=== PATIENT | female | born 1960 ===

== ENCOUNTER 2017-09-08 10:33 | Emergency (ER) | payer OTHER ==
[2017-09-08] MEDS ORDERED: Sodium Chloride 0.9% 1,000 ML IV ONE (11:35)
[2017-09-08] MEDS ORDERED: Tamsulosin 0.4 MG Cap.ER PO ONE (11:35)
[2017-09-08] MEDS ORDERED: Ondansetron 4 MG/2 ML SDV IVPUSH ONE (11:35)
[2017-09-08] MEDS ORDERED: Sodium Chloride 0.9% 10 ML Syringe FLUSH PRN (11:35)
[2017-09-08] MEDS ORDERED: HYDROmorphone 0.5 MG/0.5 ML Syringe IVPUSH ONE (11:36)
--- NOTE | 2017-09-08 11:40 | EDM.PDOC ---
ED HPI GENERAL MEDICAL PROBLEM - General Chief Complaint: Flank Pain Stated Complaint: LEFT SIDE FLANK PAIN Time Seen by Provider: 09/08/17 11:27 Source of Information: Reports: Patient History Limitations: Reports: No Limitations - History of Present Illness INITIAL COMMENTS - FREE TEXT/NARRATIVE: Patient is a 57-year-old female presents ED complaining of sudden onset of left flank pain that radiates into her lower abdomen. This came on approximately 945 this morning. Pain is described as intense, sharp, that wax and wane with intensity. Pain is constant currently rated a 6 out of 10. At its peak patient describes it as worse than childbirth. Patient does feel like she needs to urinate with only a trickle of urine present. There is no pain with urination. She did become mildly nauseated with no episodes of emesis. Denies any chest pain, short of breath, fever, diarrhea, history kidney stones, or any additional complaints. Patient has a past medical history of hypertension, asthma, hypothyroidism Patient is currently taking enalapril, amlodipine, levothyroxine, and Ventolin inhaler Surgical history noncontributory Patient does not smoke utilize alcohol on occasionally denies recreational drug use. Left Flank Pain Score (Numeric/FACES): 10 - Related Data Allergies Allergy/AdvReac Type Severity Reaction Status Date / Time clindamycin Allergy Hives Verified 09/08/17 11:06 Sulfa (Sulfonamide Allergy Rash Verified 09/08/17 11:06 Antibiotics) tetracycline Allergy Hives Verified 09/08/17 11:06 Home Meds: Home Meds Acetaminophen/HYDROcodone [Clever 325-5 MG] 1 tab PO Q6H PRN #12 tablet 09/08/17 [Rx] Enalapril [Vasotec] 10 mg PO DAILY 09/08/17 [History] Levothyroxine [Synthroid] 88 mcg PO DAILY 09/08/17 [History] Ondansetron [Zofran ODT] 4 mg PO Q6H PRN #12 tab.dis 09/08/17 [Rx] Tamsulosin [Flomax] 0.4 mg PO PCBREAKFAST #7 cap.er 09/08/17 [Rx] amLODIPine [Norvasc] 10 mg PO DAILY 09/08/17 [History] Past Medical History Cardiovascular History: Reports: Hypertension Respiratory History: Reports: Asthma - Past Surgical History HEENT Surgical History: Reports: Tonsillectomy Social & Family History - Tobacco Use Smoking Status *Q: Never Smoker - Caffeine Use Caffeine Use: Reports: Soda - Recreational Drug Use Recreational Drug Use: No ED ROS GENERAL - Review of Systems Review Of Systems: ROS reveals no pertinent complaints other than HPI. ED EXAM, GI/ABD - Physical Exam Exam: See Below Exam Limited By: No Limitations General Appearance: Alert, WD/WN, No Apparent Distress Ears: Hearing Grossly Normal Nose: Normal Inspection Throat/Mouth: Normal Voice, No Airway Compromise Neck: Normal Inspection, Supple Respiratory/Chest: No Respiratory Distress, Lungs Clear, Normal Breath Sounds, No Accessory Muscle Use, Chest Non-Tender Cardiovascular: Normal Peripheral Pulses, Regular Rate, Rhythm, No Murmur GI/Abdominal Exam: Normal Bowel Sounds, Soft, No Organomegaly, No Distention, Tender (left cva/flank tenderness with palpation. ) Back Exam: Normal Inspection, Full Range of Motion Extremities: Normal Inspection, Non-Tender, No Pedal Edema, Normal Capillary Refill Neurological: Alert, Oriented, CN II-XII Intact, Normal Cognition, No Motor/ Sensory Deficits Psychiatric: Normal Affect, Normal Mood Skin Exam: Warm, Dry, Intact, Normal Color Course - Vital Signs Last Recorded V/S: Last Vital Signs Temp 97.5 F 09/08/17 11:10 Pulse 83 09/08/17 11:10 Resp 20 09/08/17 11:10 BP 147/98 H 09/08/17 11:10 Pulse Ox 99 09/08/17 11:10 - Orders/Labs/Meds Orders: Active Orders 24 hr Category Date Time Status Peripheral IV Care [RC] . DIRECTED Care 09/08/17 11:36 Active UA W/MICROSCOPIC [URIN] Stat Lab 09/08/17 13:13 Received Sodium Chloride 0.9% [Normal Saline] 1,000 ml Med 09/08/17 11:35 Active IV ONETIME Sodium Chloride 0.9% [Saline Flush] Med 09/08/17 11:35 Active 10 ml FLUSH ASDIRECTED PRN Peripheral IV Insertion Adult [OM.PC] Stat Oth 09/08/17 11:35 Ordered Medication Orders Sodium Chloride (Normal Saline) 1,000 mls @ 250 mls/hr IV ONETIME ONE Stop: 09/08/17 15:34 Last Admin: 09/08/17 13:35 Dose: 250 mls/hr Sodium Chloride (Saline Flush) 10 ml FLUSH ASDIRECTED PRN PRN Reason: Keep Vein Open Last Admin: 09/08/17 13:05 Dose: 10 ml Labs: Laboratory Tests 09/08/17 09/08/17 Range/Units 13:05 13:05 WBC 10.10 H (3.98-10.04) K/mm3 RBC 5.27 H (3.98-5.22) M/mm3 Hgb 15.5 (11.2-15.7) gm/L Hct 46.1 H (34.1-44.9) % MCV 87.5 (79.4-94.8) fl MCH 29.4 (25.6-32.2) pg MCHC 33.6 (32.2-35.5) g/dl RDW Std Deviation 41.6 (36.4-46.3) fL Plt Count 239 (182-369) K/mm3 MPV 9.4 (9.4-12.3) fl Neut % (Auto) 83.5 H (34.0-71.1) % Lymph % (Auto) 11.2 L (19.3-51.7) % [place] % (Auto) 4.8 (4.7-12.5) % Eos % (Auto) 0.2 L (0.7-5.8) Baso % (Auto) 0.2 (0.1-1.2) % Neut # (Auto) 8.44 H (1.56-6.13) K/mm3 Lymph # (Auto) 1.13 L (1.18-3.74) K/mm3 [place] # (Auto) 0.48 H (0.24-0.36) K/mm3 Eos # (Auto) 0.02 L (0.04-0.36) K/mm3 Baso # (Auto) 0.02 (0.01-0.08) K/mm3 Sodium 142 (136-145) mEq/L Potassium 4.1 (3.5-5.1) mEq/L Chloride 107 (98-107) mEq/L Carbon Dioxide 25 (21-32) mEq/L Anion Gap 14.1 (5-15) BUN 17 (7-18) mg/dL Creatinine 1.0 (0.55-1.02) mg/dL Est Cr Clr Drug Dosing 55.18 mL/min Estimated GFR (MDRD) 57 (>60) mL/min BUN/Creatinine Ratio 17.0 (14-18) Glucose 107 H (74-106) mg/dL Calcium 9.7 (8.5-10.1) mg/dL Total Bilirubin 0.4 (0.2-1.0) mg/dL AST 35 (15-37) U/L ALT 51 (14-59) U/L Alkaline Phosphatase 130 H (46-116) U/L C-Reactive Protein < 0.2 (<1.0) mg/dL Total Protein 7.7 (6.4-8.2) g/dl Albumin 3.8 (3.4-5.0) g/dl Globulin 3.9 gm/dL Albumin/Globulin Ratio 1.0 (1-2) Meds: Medications Generic Name Dose Route Start Last Admin Trade Name Freq PRN Reason Stop Dose Admin Sodium Chloride 1,000 mls @ 250 mls/hr 09/08/17 11:35 09/08/17 13:35 Normal Saline IV 09/08/17 15:34 250 mls/hr ONETIME ONE Administration Sodium Chloride 10 ml 09/08/17 11:35 09/08/17 13:05 Saline Flush FLUSH 10 ml ASDIRECTED PRN Administration Keep Vein Open Discontinued Medications Generic Name Dose Route Start Last Admin Trade Name Freq PRN Reason Stop Dose Admin Hydromorphone HCl 0.5 mg 09/08/17 11:36 09/08/17 13:34 Dilaudid IVPUSH 09/08/17 11:37 0.5 mg ONETIME ONE Administration Ondansetron HCl 4 mg 09/08/17 11:35 09/08/17 13:30 Zofran IVPUSH 09/08/17 11:36 4 mg ONETIME ONE Administration Tamsulosin HCl 0.4 mg 09/08/17 11:35 09/08/17 13:39 Flomax PO 09/08/17 11:36 0.4 mg ONETIME ONE Administration - Re-Assessments/Exams Free Text/Narrative Re-Assessment/Exam: IV established with normal saline 250 mls per hour, Flomax or 0.4 mg by mouth, Dilaudid 0.5 mg IVP, Zofran 4 mg IVP, and Toradol 30 mg IVP. Initial labs and studies include CBC, chem 14, CRP, UA, and CT of the abdomen and pelvis with no contrast renal stone protocol. 09/08/17 13:23 CT of the abdomen and pelvis impression: Obstructing stone within the distal left ureter located approximate 5 cm from the UVJ measuring 4.5 mm. Fatty infiltration with the liver and other incidental findings. Labs are pending. Labs reviewed: White blood cell count 10.10, hemoglobin 15.5, neutrophil percentage 83.5, neutrophil number is a 0.44, sodium 142, potassium 4.1, AG 14.1 , creatinine 1.0, glucose 107, CRP less than 0.2. UA is pending. 1345 reassessment, patient states pain is under control with the above therapies. Once UA is back with no concerning findings will discharge patient home with instructions as documented. Departure - Departure Time of Disposition: 13:55 Disposition: Home, Self-Care 01 Condition: Good Clinical Impression: Kidney stones - Discharge Information Prescriptions: Acetaminophen/HYDROcodone [Clever 325-5 MG] 1 tab PO Q6H PRN #12 tablet PRN Reason: Pain (Severe 7-10) Ondansetron [Zofran ODT] 4 mg PO Q6H PRN #12 tab.dis PRN Reason: Nausea/Vomiting Tamsulosin [Flomax] 0.4 mg PO PCBREAKFAST #7 cap.er Instructions: Kidney Stones, [id number], Flank Pain, Noro-ol-Gmal, Pain Medicine Instructions, [id number] Referrals: Fidelina Smith, ELECTRICAL DISCHARGE MACHINE OPERATOR [Primary Care Provider] - Forms: ED Department Discharge, ED Return to Work/School Form Additional Instructions: As discussed you have a kidney stone that should pass on its own accord. He still measures 4.5 mm in diameter close to the entry of the ureter to the bladder. Treatment at this point is pain therapy with Clever one tab every 6 hours as needed for discomfort. Do not drive this evening nor while taking this medication. For nausea take Zofran 4 mg every 6 hours as needed. Flomax one tab every morning until stone passes. If stone has not passed within the next 3-5 days please follow up with a urologist for further evaluation. Call and make an appointment. Return to ED if you develop any new or worsening symptoms as discussed. Push the fluids. Can also utilize ibuprofen 6 mg every 6 hours with food and plenty of water for pain in addition to the Clever. - My Orders Last 24 Hours: My Active Orders 09/08/17 11:35 Sodium Chloride 0.9% [Normal Saline] 1,000 ml IV ONETIME Sodium Chloride 0.9% [Saline Flush] 10 ml FLUSH ASDIRECTED PRN Peripheral IV Insertion Adult [OM.PC] Stat 09/08/17 11:36 Peripheral IV Care [RC] . DIRECTED 09/08/17 13:13 UA W/MICROSCOPIC [URIN] Stat - Assessment/Plan Last 24 Hours: My Active Orders 09/08/17 11:35 Sodium Chloride 0.9% [Normal Saline] 1,000 ml IV ONETIME Sodium Chloride 0.9% [Saline Flush] 10 ml FLUSH ASDIRECTED PRN Peripheral IV Insertion Adult [OM.PC] Stat 09/08/17 11:36 Peripheral IV Care [RC] . DIRECTED 09/08/17 13:13 UA W/MICROSCOPIC [URIN] Stat
--- NOTE | 2017-09-08 13:00 | CT ---
Addendum: There is a side discrepancy between the body and impression regarding right and left side of an obstructing stone. The obstructing stone is on the left side with finding in the body of the report stating right side which is incorrect. The impression is correct. --- Addendum1 above dictated on [09/09/2017 13:50] by [Loli Ramirez, Kuldip Burnette] --- --- Addendum1 above signed on [09/09/2017 13:52] by [Loli Ramirez Hilton J.] --- --- Original report below dictated on [09/08/2017 12:56] by [Loli Ramirez Hilton J.] --- --- Original report below signed on [09/08/2017 12:56] by [Loli Ramirez, Kuldip Burnette] --- CT abdomen and pelvis Technique: Multiple axial sections were obtained from above the kidneys inferiorly through the pubic symphysis. Intravenous and oral contrast not utilized. Study has been performed as a ureteral stone protocol. Comparison: No previous abdominal imaging. Findings: Right ureter is mildly prominent. This finding is due to an obstructing stone located within the pelvis. Stone measures approximately 4.5 mm. Stone occurs about 5 cm from the UVJ. No other abnormal calcifications are seen along the course of the ureters. No abnormal calcifications are seen within the kidneys. Fatty infiltration is seen within the liver. Spleen size is normal. Adrenal glands show no nodule. Pancreas appears within normal limits. Gallbladder shows no calcified gallstones. Aorta shows no aneurysmal dilatation. No retroperitoneal adenopathy is seen. Appendix is seen which is normal. No pelvic mass or adenopathy is seen. Bone window settings were reviewed which shows minimal degenerative change within the spine. Impression: 1. Obstructing stone within the distal left ureter located approximately 5 cm from the UVJ measuring 4.5 mm. 2. Fatty infiltration within the liver and other incidental findings. Diagnostic code #3 --- Addendum1 signed ---
== END 2017-09-08 14:15 | disposition home or self-care (01) ==
LOC: JD.ED 10:33
DX: N20.2 Calculus of kidney with calculus of ureter (principal); I10 Essential (primary) hypertension; Z88.1 Allergy status to other antibiotic agents; Z88.2 Allergy status to sulfonamides; Z79.899 Other long term (current) drug therapy
CPT/HCPCS: 36415; 74176; 80053; 81001; 85025; 86140; 96361; 96374; 96375; 99284; A9270; J1170; J2405; J7040; J7050

== ENCOUNTER 2017-09-14 13:15 | Emergency (ER) | payer OTHER ==
--- NOTE | 2017-09-14 13:42 | EDM.PDOC ---
ED HPI GENERAL MEDICAL PROBLEM - General Chief Complaint: Head Injury Stated Complaint: HEAD INJURY Time Seen by Provider: 09/14/17 13:25 Source of Information: Reports: Patient History Limitations: Reports: No Limitations - History of Present Illness INITIAL COMMENTS - FREE TEXT/NARRATIVE: 57-year-old female presents for evaluation and treatment of injuries sustained from a fall. Reportedly around 12:30 the patient was loading a fridge onto a trailer. She fell backwards and tripped over the side of the trailer landing backwards and struck her head on concrete. She denies any syncope. She is currently complaining of a headache, photophobia, lightheadedness, dizziness, nausea and neck pain. She denies any vision changes, back pain, chest pain, shortness of breath, abdominal pain, epistaxis, loose or missing teeth or pain in her arms or legs. She was able to get up after the fall and walked on her own volition. She denies any pain in her arms, legs or hips. Reports that she was feeling "woozy" while walking. Patient is not on any blood thinners. She is not taking aspirin daily. Onset: Today Duration: Hour(s): (1) Location: Reports: Head, Neck. Denies: Chest, Abdomen, Back, Pelvis, Upper Extremity, Left, Upper Extremity, Right, Lower Extremity, Left, Lower Extremity , Right Associated Symptoms: Reports: Headaches, Nausea/Vomiting (nausea but no vomiting ). Denies: Chest Pain, Shortness of Breath, Syncope Head Pain Score (Numeric/FACES): 10 - Related Data Allergies Allergy/AdvReac Type Severity Reaction Status Date / Time clindamycin Allergy Hives Verified 09/14/17 13:26 Sulfa (Sulfonamide Allergy Rash Verified 09/14/17 13:26 Antibiotics) tetracycline Allergy Hives Verified 09/14/17 13:26 Home Meds: Home Meds Acetaminophen/HYDROcodone [[place] 325-5 MG] 1 tab PO Q6H PRN #12 tablet 09/08/17 [Rx] Enalapril [Vasotec] 10 mg PO DAILY 09/08/17 [History] Levothyroxine [Synthroid] 88 mcg PO DAILY 09/08/17 [History] Ondansetron [Zofran ODT] 4 mg PO Q6H PRN #12 tab.dis 09/08/17 [Rx] Tamsulosin [Flomax] 0.4 mg PO PCBREAKFAST #7 cap.er 09/08/17 [Rx] amLODIPine [Norvasc] 10 mg PO DAILY 09/08/17 [History] Tamsulosin HCl [Flomax] 0.4 mg PO DAILY #10 cap.er.24h 09/14/17 [Rx] Past Medical History Cardiovascular History: Reports: Hypertension Respiratory History: Reports: Asthma - Past Surgical History HEENT Surgical History: Reports: Tonsillectomy Social & Family History - Tobacco Use Smoking Status *Q: Never Smoker - Caffeine Use Caffeine Use: Reports: Soda - Recreational Drug Use Recreational Drug Use: No ED ROS GENERAL - Review of Systems Review Of Systems: See Below HEENT: Reports: Other (no loose teeth, no epistaxis). Denies: Vision Change Respiratory: Denies: Shortness of Breath Cardiovascular: Reports: Lightheadedness. Denies: Chest Pain, Syncope GI/Abdominal: Reports: Nausea. Denies: Abdominal Pain, Vomiting Musculoskeletal: Reports: Neck Pain. Denies: Arm Pain, Back Pain, Leg Pain Neurological: Reports: Dizziness, Headache. Denies: Numbness, Syncope, Tingling , Gait Disturbance ED EXAM, HEAD INJURY - Physical Exam Exam: See Below Exam Limited By: No Limitations General Appearance: Alert, WD/WN, No Apparent Distress Head: Scalp Swelling (posterior scalp). No: Scalp Lacerations, Scalp Hematoma, Scalp Tenderness, Active Bleeding, Barney's Sign, Raccoon Eyes Nexus Criteria: No: Evidence of Intoxication, Altered Level of Consciousness, Focal Neurological Deficit, Painful Distraction Injuries Eyes: Bilateral Eye: EOMI, Normal Inspection, PERRL Ears: Normal External Exam Nose: Normal Inspection Throat/Mouth: Normal Inspection, Normal Lips, Normal Oropharynx, Normal Voice, No Airway Compromise Neck: Normal Inspection, Other (c-collar applied upon arrival) Respiratory: No Respiratory Distress, Lungs Clear, Chest Non-Tender Cardiovascular: Normal Peripheral Pulses, Regular Rate, Rhythm, No Murmur GI/Abdominal Exam: Soft, Non-Tender Neurologic: Alert, Normal Mood/Affect Skin: Normal Color, Warm/Dry - [place] Coma Score Best Eye Response ([place]): (4) Open Spontaneously Best Verbal Response ([place]): (5) Oriented Best Motor Response ([place]): (6) Obeys Commands Course - Vital Signs Last Recorded V/S: Last Vital Signs Temp 36.3 C 09/14/17 13:27 Pulse 65 09/14/17 13:27 Resp BP 134/80 09/14/17 13:27 Pulse Ox 97 09/14/17 13:27 - Orders/Labs/Meds Orders: Active Orders 24 hr Category Date Time Status Cervical Spine wo Cont [CT] Stat Exams 09/14/17 13:39 Taken Head wo Cont [CT] Stat Exams 09/14/17 13:39 Taken - Radiology Interpretation Free Text/Narrative:: CT of the head without contrast impression per [facility]: normal head/brain CT CT of the cervical spine without contrast impression per [facility]: Mild degenerative spondylosis. No acute findings. - Re-Assessments/Exams Free Text/Narrative Re-Assessment/Exam: 09/14/17 15:35 Dr. Halina Post has seen the patient and agrees with the treatment plan. CT report Returned. No abnormality seen on cervical spine or head CT. C-collar removed. We will discharge the patient home at this time. Patient was here just a few days ago for kidney stones. She states she'll has 1 pill of her Flomax left. She has not yet passed the stone. I will refill her Flomax for her. Discharge instructions as documented. Departure - Departure Time of Disposition: 15:36 Disposition: Home, Self-Care 01 Condition: Good Clinical Impression: Kidney stones, Concussion injury of brain - Discharge Information Prescriptions: Tamsulosin HCl [Flomax] 0.4 mg PO DAILY #10 cap.er.24h Instructions: Concussion, Adult, [id number] Referrals: Fidelina Smith DIGITAL MARKETING CONSULTANT [Primary Care Provider] - Forms: ED Department Discharge Additional Instructions: Continue with your Flomax 1 capsule daily. Continue to drink plenty of fluids. [id number] Tylenol or Motrin as needed for pain relief. Recommend "brain rest". Limit brain stimulating activities such as TV, computer , reading, etc. the next few days. Please return to the ER if your symptoms change or worsen. Follow-up with your primary care provider early this week for recheck of your symptoms. - My Orders Last 24 Hours: My Active Orders 09/14/17 13:39 Cervical Spine wo Cont [CT] Stat Head wo Cont [CT] Stat - Assessment/Plan Last 24 Hours: My Active Orders 09/14/17 13:39 Cervical Spine wo Cont [CT] Stat Head wo Cont [CT] Stat
--- NOTE | 2017-09-15 10:46 | CT ---
Head CT Technique: Multiple axial sections through the brain were obtained. Intravenous contrast was not utilized. Comparison: No previous intracranial imaging. Findings: Ventricles along with basal cisterns and sulci over the convexities are within normal limits for the patient's age. No abnormal parenchymal densities are seen. No evidence of intracranial hemorrhage. No midline shift or mass effect is seen. Bone window settings were reviewed which show the visualized sinuses to appear clear. Nondisplaced fracture is felt to be present within the posterior left skull extending into the left side of the skull base. Impression: 1. Nondisplaced left posterior skull fracture extending into the left side of the skull base. 2. No acute intracranial abnormality is appreciated. Diagnostic code #3 Mostly agree with preliminary report issued by [facility] ([facility] report finalized on 09/14/17, 4:16 PM Central Time) - please note additional finding as described above.
--- NOTE | 2017-09-15 10:46 | CT ---
CT cervical spine Technique: Multiple axial sections were obtained from above C1 inferiorly to the bottom of T1. Reconstructed sagittal and coronal images were reviewed. Comparison: No prior cervical spine imaging. Findings: Nondisplaced fracture identified to the left side of the skull base. Mild degenerative change is noted between the dens and anterior arch of C1. Mild disc space narrowing is noted at C5-C6 and C6-C7 with slight anterior osteophytes as well as posterior osteophytes. Vertebral body heights are maintained. Vertebral bodies and posterior arches are intact. No cervical spine fracture is seen. No bony central or bony neural foraminal stenosis is seen. No abnormal subluxation is seen. Minimal reversal of normal lordosis is seen which most likely is positional. Impression: 1. Fracture within the left skull base which is nondisplaced. This was not mentioned on previous preliminary report by [facility]. 2. Mild degenerative change. No additional abnormality is identified. Mostly agree with preliminary report issued by [facility], preliminary report finalized on 09/14/17, 4:16 PM Central Time - please see above for further finding.
== END 2017-09-14 15:51 | disposition home or self-care (01) ==
LOC: JD.ED 13:15
DX: S02.102A Fracture of base of skull, left side, initial encounter for closed fracture (principal); S06.0X0A Concussion without loss of consciousness, initial encounter; I10 Essential (primary) hypertension; Z88.1 Allergy status to other antibiotic agents; Z88.2 Allergy status to sulfonamides; Z79.899 Other long term (current) drug therapy; W01.0XXA Fall on same level from slipping, tripping and stumbling without subsequent striking against object, initial encounter
CPT/HCPCS: 70450; 70450-26; 72125; 72125-26; 99284; 99284-25

== ENCOUNTER 2019-01-06 08:25 | Emergency (ER) | payer OTHER ==
--- NOTE | 2019-01-06 08:58 | EDM.PDOC ---
ED HPI GENERAL MEDICAL PROBLEM - General Chief Complaint: Upper Extremity Injury/Pain Stated Complaint: LT HAND INJURY Time Seen by Provider: 01/06/19 08:53 Source of Information: Reports: Patient History Limitations: Reports: No Limitations - History of Present Illness INITIAL COMMENTS - FREE TEXT/NARRATIVE: 58-year-old female presents to the ED with an acute injury to her left wrist. She states she was leaving for work and then turnaround to go back into her house and tripped over she believes an extension cord. This caused her to fall with direct blow to the back of her right wrist and hand. To take her watch off because of swelling and pain. She has persistent pain dorsal aspect of the left wrist. She denies any other injuries. The pain is 6 out of 10. She is still able to make a full fist. Of note she is right-hand dominant. Onset: Today Onset Date: 01/06/19 Onset Time: 07:00 Duration: Minutes: Location: Reports: Upper Extremity, Left (Left dorsal wrist and hand) Quality: Reports: Ache, Throbbing Severity: Moderate (4-5 out of 10) Improves with: Reports: Rest Worsens with: Reports: Movement Context: Reports: Trauma. Denies: Activity, Exercise, Lifting, Sick Contact Associated Symptoms: Reports: No Other Symptoms (Tripped and fell landing on the back of her right wrist and hand in her home this morning.) Treatments [employer]PER[employer]: Reports: Other (see below) (None.) Left Wrist Pain Score (Numeric/FACES): 6 - Related Data Allergies Allergy/AdvReac Type Severity Reaction Status Date / Time ciprofloxacin [From Cipro] Allergy Rash Verified 01/06/19 08:39 clindamycin Allergy Hives Verified 01/06/19 08:39 erythromycin base Allergy Rash Verified 01/06/19 08:39 Sulfa (Sulfonamide Allergy Rash Verified 01/06/19 08:39 Antibiotics) tetracycline Allergy Hives Verified 01/06/19 08:39 Home Meds: Home Meds Enalapril [Vasotec] 10 mg PO DAILY 09/08/17 [History] Levothyroxine [Synthroid] 88 mcg PO DAILY 09/08/17 [History] amLODIPine [Norvasc] 10 mg PO DAILY 09/08/17 [History] Past Medical History Cardiovascular History: Reports: Hypertension Respiratory History: Reports: Asthma - Past Surgical History HEENT Surgical History: Reports: Tonsillectomy Social & Family History - Tobacco Use Smoking Status *Q: Never Smoker - Caffeine Use Caffeine Use: Reports: Soda - Recreational Drug Use Recreational Drug Use: No - Living Situation & Occupation Living situation: Reports: Occupation: Employed Review of Systems - Review of Systems Review Of Systems: See Below Constitutional: Reports: No Symptoms Eyes: Reports: Glasses Ears: Reports: No Symptoms Nose: Reports: No Symptoms Mouth/Throat: Reports: No Symptoms Respiratory: Reports: No Symptoms Cardiovascular: Reports: No Symptoms, Other (Has hypertension chronically) GI/Abdominal: Reports: No Symptoms Genitourinary: Reports: No Symptoms Musculoskeletal: Reports: Joint Pain (Current pain dorsal aspect left wrist and hand) Skin: Reports: No Symptoms Neurological: Reports: No Symptoms Psychiatric: Reports: No Symptoms ED EXAM, GENERAL - Physical Exam Exam: See Below Exam Limited By: No Limitations General Appearance: Alert, WD/WN, No Apparent Distress Peripheral Pulses: 3+: Radial (L), Radial (R) Extremities: Other (Examination was limited to the left wrist and hand. There is a superficial abrasion over the carpal bones mid dorsal wrist and hand. She is able to make a full fist. There is obvious swelling of the distal radius and ulna area. She has limited pronation supination at the wrist.) Neurological: Alert, Oriented, CN II-XII Intact, Normal Cognition Psychiatric: Normal Affect, Normal Mood Skin Exam: Warm, Dry, Other (Superficial abrasion over the dorsal aspect of the mid right wrist and hand.) Course - Vital Signs Last Recorded V/S: Last Vital Signs Temp 36.6 C 01/06/19 08:41 Pulse 65 01/06/19 08:41 Resp 16 01/06/19 08:41 BP 133/84 01/06/19 08:41 Pulse Ox 97 01/06/19 08:41 - Orders/Labs/Meds Orders: Active Orders 24 hr Category Date Time Status Wrist Comp Min 3V Lt [CR] Stat Exams 01/06/19 08:53 Taken - Radiology Interpretation Free Text/Narrative:: 58-year-old female tripped and fell on her own home this morning. Negrito she tripped over an extension cord which caused her to land awkwardly on the dorsal aspect of her left hand and wrist. This resulted in a superficial abrasion in this area. There is some swelling over the distal radius and ulna and she reports constant pain in this area since falling at 7:00 this morning. Plan x- ray of the left wrist to be done. - Re-Assessments/Exams Free Text/Narrative Re-Assessment/Exam: 01/06/19 09:28 three-view x-ray of the left wrist and hand does not reveal any fractures in the carpal bones. She does have a lot of arthritis at the triquetrum and base of the first in the CP joint. Plan her abrasion will be cleansed with topical anabolic bacitracin placed and a bandage. Navi wrap will then be placed so that she can ice the area today and tomorrow. Motrin 600 mg every 6 hours as needed for pain relief Departure - Departure Time of Disposition: :29 Disposition: Home, Self-Care 01 Condition: Fair Clinical Impression: Contusion of left wrist, initial encounter, Abrasion of left wrist, initial encounter - Discharge Information *PRESCRIPTION DRUG MONITORING PROGRAM REVIEWED*: Not Applicable *COPY OF PRESCRIPTION DRUG MONITORING REPORT IN PATIENT ADRIANNA: Not Applicable Referrals: Fidelina Smith, CANAL SUPERINTENDENT [Primary Care Provider] - Forms: ED Department Discharge Additional Instructions: Evaluation in the emergency room today in regards to injury to the left dorsal wrist from a fall at home this morning. His suffered superficial abrasion to the dorsal aspect of the left wrist and hand. There is swelling over the distal radius and ulna. An x-ray was done and does not reveal any broken bones in the wrist or ulna or radius bones of the forearm. 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 Treatment is to daily cleanse the abrasion with soap and water and then apply topical antibiotic ointment --bacitracin_until healed. Trap on during the day and off at night for the next 3 days. Ice pack to the area one half hour of every 4 hours today and tomorrow. Motrin 600 mg every 6 hours needed for relief of pain. - My Orders Last 24 Hours: My Active Orders 01/06/19 08:53 Wrist Comp Min 3V Lt [CR] Stat - Assessment/Plan Last 24 Hours: My Active Orders 01/06/19 08:53 Wrist Comp Min 3V Lt [CR] Stat
--- NOTE | 2019-01-06 09:50 | CR ---
Left wrist: Three views of the left wrist were obtained. Comparison: No prior wrist exam. Severe degenerative change is noted within the CMC joint of the thumb. No fracture, dislocation or other bony abnormality is seen. Impression: 1. 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 Diagnostic code #3
== END 2019-01-06 09:52 | disposition home or self-care (01) ==
LOC: JD.ED 08:25
DX: S60.212A Contusion of left wrist, initial encounter (principal); I10 Essential (primary) hypertension; Z79.899 Other long term (current) drug therapy; Z88.1 Allergy status to other antibiotic agents; Z88.2 Allergy status to sulfonamides; Z88.8 Allergy status to other drugs, medicaments and biological substances; W22.8XXA Striking against or struck by other objects, initial encounter
CPT/HCPCS: 73110-26-LT; 73110-LT; 99282; 99283-25